=== PATIENT | female | born 1925 | race Caucasian/White ===

== ENCOUNTER 2016-12-27 15:51 | Emergency (ER) | payer MEDICARE, BC ==
--- NOTE | 2016-12-27 16:44 | ER Document Report ---
ED General - General Stated Complaint: RECTAL BLEEDING Time Seen by Provider: 12/27/16 16:10 Mode of Arrival: Medic Information source: Relative, Legal Guardian Cannot obtain history due to: Dementia Notes: Patient presents with her daughter who states that patient had some spotting to her diaper yesterday and had a significant amount of blood in her diaper today. Daughter is uncertain if this is vaginal blood or rectal bleeding. Patient has had occasional wheezing with ambulation over the past few weeks. Daughter denies any fever or cough. Patient has a history of advanced dementia and is nonverbal. TRAVEL OUTSIDE OF THE [place] IN LAST 30 DAYS: No - HPI Onset: Yesterday Onset/Duration: Gradual Quality of pain: No pain Associated symptoms: None. denies: Nonproductive cough, Productive cough, Diarrhea, Vomiting Exacerbated by: Denies Relieved by: Denies Similar symptoms previously: No Recently seen / treated by doctor: No - Related Data Allergies/Adverse Reactions: scopolamine [Scopolamine] Allergy (Intermediate, Verified 01/29/15 11:06) stroke symptoms buprenorphine Allergy (Verified 12/27/16 18:15) prednisone [Prednisone] Allergy (Verified 01/29/15 11:06) Past Medical History - General Information source: Relative, Legal Guardian - Social History Smoking Status: Never Smoker Frequency of alcohol use: None Drug Abuse: None Lives with: Family Family History: Reviewed & Not Pertinent - Past Medical History Cardiac Medical History: Reports: Hx Atrial Fibrillation, Hx Hypertension Pulmonary Medical History: Denies: Hx Tuberculosis Neurological Medical History: Reports: Hx Migraine GI Medical History: Reports: Hx Gastroesophageal Reflux Disease Psychiatric Medical History: Reports: Hx Dementia Past Surgical History: Reports: Hx Appendectomy, Hx Cardiac Surgery - pacemaker , Hx Pacemaker - Immunizations Hx Diphtheria, Pertussis, Tetanus Vaccination: Yes Hx Pneumococcal Vaccination: 05/17/09 Review of Systems - Review of Systems -: Yes ROS unobtainable due to patient's medical condition - demention Constitutional: No symptoms reported. denies: Recent illness EENT: No symptoms reported Cardiovascular: No symptoms reported Respiratory: Wheezing Gastrointestinal: Rectal bleeding - possible Genitourinary: No symptoms reported Female Genitourinary: Vaginal bleeding - possible Musculoskeletal: No symptoms reported Skin: No symptoms reported Hematologic/Lymphatic: No symptoms reported Neurological/Psychological: Dementia Physical Exam - Vital signs Vitals: Resp 24 H 12/27/16 16:01 - General General appearance: Appears well, Alert In distress: None - Respiratory Respiratory status: No respiratory distress Chest status: Nontender Breath sounds: Normal Chest palpation: Normal - Cardiovascular Rhythm: Regular Heart sounds: S1 appreciated, S2 appreciated Murmur: Yes - Abdominal Inspection: Normal Distension: No distension Bowel sounds: Hyperactive Tenderness: Nontender Organomegaly: No organomegaly - Rectal Tenderness: No Stool: See lab result Hemorrhoids: External - Genitourinary External exam: Normal Vaginal bleeding: Moderate - Back Back: Normal - Extremities General upper extremity: Normal inspection, Nontender General lower extremity: Normal inspection, Nontender - Neurological Cognition: Confused Orientation: Disoriented to person [place] Coma Scale Eye Opening: Spontaneous [place] Coma Scale Verbal: Confused [place] Coma Scale Motor: Withdraws to Pain [place] Coma Scale Total: 12 - Skin Skin Temperature: Warm Skin Moisture: Dry Skin Color: Normal Course - Re-evaluation Re-evalutation: 12/27/16 16:[address] Arreguin regarding pt presentation, does not recommend any imaging at this time. Agrees with planned workup. 12/27/16 19:[address] Arreguin regarding the patient chest x-ray report and presentation. Advises ambulating patient monitoring her heart rate in saturation. Dr. Arreguin recommends outpatient follow-up with her primary doctor to further evaluate pleural effusion as well as vaginal bleeding. Pt does not meet admission criteria at this time 12/27/16 19:41 Patient ambulated in the blair with assist 2. Patient did not become hypoxic or tachycardiac after ambulating. Heart rate in the 90s, oxygen saturation 94% . 12/27/16 19:41 Patient without any blood noted to diaper at this time. Bedside report and handout given to Pete HOLCOMB. Family advised of discharge plan of care and importance of follow-up with primary doctor tomorrow as well as pulling unit operator for further evaluation. Discussed worsening signs or symptoms that patient should return immediately for. Family verbalized understanding and agree with plan of care. 12/28/16 07:22 - Vital Signs Vital signs: Temp Pulse Resp BP Pulse Ox 16 149/72 H 96 12/27/16 20:15 12/27/16 20:15 12/27/16 20:15 - Laboratory Result Diagrams: 12/27/16 16:52 12/27/16 17:20 Laboratory results interpreted by me: 12/27/16 12/27/16 12/27/16 16:52 17:20 18:05 RDW 14.2 H Chloride 108 H BUN 26 H Est GFR (Non-Af Amer) 52 L Albumin 3.4 L Urine Blood SMALL H Urine Nitrite POSITIVE H Ur Leukocyte Esterase LARGE H Urine Ascorbic Acid 20 H Labs- Entire Visit 12/27/16 12/27/16 12/27/16 16:52 16:52 16:52 WBC 9.1 RBC 3.94 Hgb 12.5 Hct 36.9 MCV 94 MCH 31.8 MCHC 34.0 RDW 14.2 H Plt Count 237 Seg Neutrophils % 70.2 Lymphocytes % 15.5 Monocytes % 11.8 Eosinophils % 1.6 Basophils % 0.9 Absolute Neutrophils 6.4 Absolute Lymphocytes 1.4 Absolute Monocytes 1.1 Absolute Eosinophils 0.1 Absolute Basophils 0.1 PT 13.9 INR 1.00 APTT 24.3 Sodium Cancelled Potassium Cancelled Chloride Cancelled Carbon Dioxide Cancelled Anion Gap Cancelled BUN Cancelled Creatinine Cancelled Est GFR ( Amer) Cancelled Est GFR (Non-Af Amer) Cancelled Glucose Cancelled Lactic Acid Calcium Cancelled Total Bilirubin Cancelled Direct Bilirubin Cancelled Indirect Bilirubin Cancelled Neonat Total Bilirubin Cancelled AST Cancelled ALT Cancelled Alkaline Phosphatase Cancelled Total Protein Cancelled Albumin Cancelled Urine Color Urine Appearance Urine pH Ur Specific [place] Urine Protein Urine Glucose (UA) Urine Ketones Urine Blood Urine Nitrite Urine Bilirubin Urine Urobilinogen Ur Leukocyte Esterase Urine WBC (Auto) Urine RBC (Auto) Urine Bacteria (Auto) Urine WBC Clumps Squamous Epi Cells Auto Urine Mucus (Auto) Urine Ascorbic Acid Stool Occult Blood Blood Type Antibody Screen 12/27/16 12/27/16 12/27/16 16:54 17:20 18:00 WBC RBC Hgb Hct MCV MCH MCHC RDW Plt Count Seg Neutrophils % Lymphocytes % Monocytes % Eosinophils % Basophils % Absolute Neutrophils Absolute Lymphocytes Absolute Monocytes Absolute Eosinophils Absolute Basophils PT INR APTT Sodium 140.1 Potassium 4.6 Chloride 108 H Carbon Dioxide 25 Anion Gap 7 BUN 26 H Creatinine 1.01 Est GFR ( Amer) > 60 Est GFR (Non-Af Amer) 52 L Glucose 100 Lactic Acid Calcium 9.0 Total Bilirubin 0.5 Direct Bilirubin 0.3 Indirect Bilirubin Not Reportable Neonat Total Bilirubin Not Reportable AST 35 ALT 22 Alkaline Phosphatase 102 Total Protein 6.5 Albumin 3.4 L Urine Color Urine Appearance Urine pH Ur Specific [place] Urine Protein Urine Glucose (UA) Urine Ketones Urine Blood Urine Nitrite Urine Bilirubin Urine Urobilinogen Ur Leukocyte Esterase Urine WBC (Auto) Urine RBC (Auto) Urine Bacteria (Auto) Urine WBC Clumps Squamous Epi Cells Auto Urine Mucus (Auto) Urine Ascorbic Acid Stool Occult Blood NEGATIVE Blood Type O POSITIVE Antibody Screen NEGATIVE 12/27/16 12/27/16 18:00 18:05 WBC RBC Hgb Hct MCV MCH MCHC RDW Plt Count Seg Neutrophils % Lymphocytes % Monocytes % Eosinophils % Basophils % Absolute Neutrophils Absolute Lymphocytes Absolute Monocytes Absolute Eosinophils Absolute Basophils PT INR APTT Sodium Potassium Chloride Carbon Dioxide Anion Gap BUN Creatinine Est GFR ( Amer) Est GFR (Non-Af Amer) Glucose Lactic Acid 1.1 Calcium Total Bilirubin Direct Bilirubin Indirect Bilirubin Neonat Total Bilirubin AST ALT Alkaline Phosphatase Total Protein Albumin Urine Color YELLOW Urine Appearance SLIGHTLY-CLOUDY Urine pH 5.0 Ur Specific [place] 1.015 Urine Protein NEGATIVE Urine Glucose (UA) NEGATIVE Urine Ketones NEGATIVE Urine Blood SMALL H Urine Nitrite POSITIVE H Urine Bilirubin NEGATIVE Urine Urobilinogen NEGATIVE Ur Leukocyte Esterase LARGE H Urine WBC (Auto) 105 Urine RBC (Auto) 1 Urine Bacteria (Auto) 3+ Urine WBC Clumps MOD Squamous Epi Cells Auto <1 Urine Mucus (Auto) RARE Urine Ascorbic Acid 20 H Stool Occult Blood Blood Type Antibody Screen - Diagnostic Test Radiology reviewed: Reports reviewed Discharge - Discharge Clinical Impression: Hx of essential hypertension, Vagina bleeding, Pleural effusion UTI (urinary tract infection) Qualifiers: Urinary tract infection type: site unspecified Hematuria presence: with hematuria Qualified Code(s): N39.0 - Urinary tract infection, site not specified Condition: Stable Disposition: HOME, SELF-CARE Instructions: Augmentin ([facility]), Rocephin ([facility]), Urinary Tract Infection ([facility]), Pleural Effusion ([facility]) Additional Instructions: Return immediately for any new or worsening symptoms: Increased bleeding, fever , change in vital signs, any concerning symptoms Followup with your primary care provider, call tomorrow to make a followup appointment Follow-up with a pulling unit operator for further evaluation of vaginal bleeding. Call their office tomorrow to make an appointment Prescriptions: Amoxicillin/Potassium Clav [Augmentin 500-125 Tablet] 1 each PO BID #14 tablet Referrals: LORI BAILON MD [Primary Care Provider] - [facility] tomorrow [facility] - Follow up tomorrow
[2016-12-27 16:56] LABS: ABSOLUTE BASOPHILS # (AUTO) 0.1 10^3/uL (0.0-0.2); ABSOLUTE EOSINOPHILS # (AUTO) 0.1 10^3/uL (0.0-0.6); ABSOLUTE LYMPHOCYTES (AUTO) 1.4 10^3/uL (0.5-4.7); ABSOLUTE MONOCYTES (AUTO) 1.1 10^3/uL (0.1-1.4); ABSOLUTE NEUT (AUTO) 6.4 10^3/uL (1.7-8.2); BASOPHILS % (AUTO) 0.9 % (0-2); EOSINOPHILS % (AUTO) 1.6 % (0-6); HEMATOCRIT 36.9 % (36.0-47.0); HEMOGLOBIN 12.5 g/dL (12.0-15.5); HGB HCT DIFFERENCE 0.6; LYMPHOCYTES % (AUTO) 15.5 % (13-45); MEAN CORPUSCULAR HEMOGLOBIN 31.8 pg (27.0-33.4); MEAN CORPUSCULAR VOLUME 94 fl (80-97); MONOCYTES % (AUTO) 11.8 % (3-13); RED BLOOD COUNT 3.94 10^6/uL (3.72-5.28); RED CELL DISTRIBUTION WIDTH 14.2 % (11.5-14.0); SEGMENTED NEUTROPHILS % (AUTO) 70.2 % (42-78); WHITE BLOOD COUNT 9.1 10^3/uL (4.0-10.5)
[2016-12-27 17:11] LABS: PARTIAL THROMBOPLASTIN TIME 24.3 SEC (23.5-35.8); PROTHROMBIN TIME 13.9 SEC (11.4-15.4)
[2016-12-27 17:48] LABS: ALANINE AMINOTRANSFERASE 22 U/L (9-52); ALBUMIN 3.4 g/dL (3.5-5.0); ALKALINE PHOSPHATASE 102 U/L (38-126); ANION GAP 7 (5-19); ASPARTATE AMINO TRANSFERASE 35 U/L (14-36); BILIRUBIN,DIRECT 0.3 mg/dL (0.0-0.4); BILIRUBIN,TOTAL 0.5 mg/dL (0.2-1.3); BLOOD UREA NITROGEN 26 mg/dL (7-20); CARBON DIOXIDE 25 mmol/L (22-30); CHLORIDE 108 mmol/L (98-107); CREATININE RESULT 1.01 mg/dL (0.52-1.25); GLUCOSE 100 mg/dL (75-110); POTASSIUM 4.6 mmol/L (3.6-5.0); SODIUM 140.1 mmol/L (137-145); TOTAL PROTEIN 6.5 g/dL (6.3-8.2)
[2016-12-27 18:31] LABS: APPEARANCE,URINE SLIGHTLY-CLOUDY; BILIRUBIN,URINE NEGATIVE (NEGATIVE); GLUCOSE, URINE NEGATIVE (NEGATIVE); KETONES,URINE NEGATIVE (NEGATIVE); LEUKOCYTE ESTERASE,URINE LARGE (NEGATIVE); NITRITE,URINE POSITIVE (NEGATIVE); PROTEIN,URINE NEGATIVE (NEGATIVE); URINE SPECIFIC GRAVITY 1.015; UROBILINOGEN,URINE NEGATIVE mg/dL (<2.0)
[2016-12-27] MEDS ORDERED: CEFTRIAXONE RTU 1 GM/D5W 50 ML IV ONE (18:54)
[2016-12-27 18:55] VITALS: BP 149/72
--- NOTE | 2016-12-27 19:00 | RADIOLOGY REPORT (SQ) ---
EXAM DESCRIPTION: CHEST SINGLE VIEW COMPLETED DATE/TIME: 12/27/2016 6:20 pm REASON FOR STUDY: COUGH COMPARISON: 01/29/2015 EXAM PARAMETERS: NUMBER OF VIEWS: One view. TECHNIQUE: Single frontal radiographic view of the chest acquired. RADIATION DOSE: NA LIMITATIONS: None. FINDINGS: LUNGS AND PLEURA: New right moderate-sized pleural effusion and basilar subsegmental atele ctasis -airspace disease. Left lung appears clear. No pneumothorax identified. MEDIASTINUM AND HILAR STRUCTURES: Stable. HEART AND VASCULAR STRUCTURES: Stable. BONES: No acute findings. HARDWARE: None in the chest. OTHER: No other significant finding. IMPRESSION: New right moderate-sized pleural effusion and basilar subsegmental atelectasis -airspace disease. TECHNICAL DOCUMENTATION: JOB ID: [id number]
== END 2016-12-27 20:48 | disposition home or self-care (01) ==
LOC: ER 15:51
DX: N93.9 Abnormal uterine and vaginal bleeding, unspecified (principal); J90 Pleural effusion, not elsewhere classified; N39.0 Urinary tract infection, site not specified; R31.9 Hematuria, unspecified; I10 Essential (primary) hypertension; R06.2 Wheezing; K64.4 Residual hemorrhoidal skin tags; F03.90 Unspecified dementia, unspecified severity, without behavioral disturbance, psychotic disturbance, mood disturbance, and anxiety; I48.91 Unspecified atrial fibrillation; Z95.0 Presence of cardiac pacemaker; Z88.8 Allergy status to other drugs, medicaments and biological substances
CPT/HCPCS: 99284; 51701; 96374; 86900; 86901; 36415; 86850; 83605; 85025; 85610; 85730; 82272; 80053; 81001; 71010; J0696

== ENCOUNTER 2016-12-28 12:45 | Emergency (ER) | payer MEDICARE, BC ==
--- NOTE | 2016-12-28 12:56 | ER Document Report ---
ED General - General Stated Complaint: VAGINAL BLEEDING Time Seen by Provider: 12/28/16 12:50 Notes: This refill is an 89-year-old female with a history of severe dementia who was seen here yesterday for vaginal bleeding. She had a normal hemoglobin. Was diagnosed with postmenopausal bleeding and asked to follow-up with [facility]. Apparently that appointment is tomorrow. Since then per the facility her bleeding is increased soaking through a pad, her underwear, and pulling on a chair per report. Per EMS her vitals are normal. Patient is quite demented and upset and is unable to give a history. Note: EM caveat invoked secondary to dementia TRAVEL OUTSIDE OF THE [place] IN LAST 30 DAYS: No - Related Data Allergies/Adverse Reactions: scopolamine [Scopolamine] Allergy (Intermediate, Verified 01/29/15 11:06) stroke symptoms buprenorphine Allergy (Verified 12/27/16 18:15) prednisone [Prednisone] Allergy (Verified 01/29/15 11:06) Past Medical History - General Information source: Transfer Record, [facility] Records, Outside Facility Records - Social History Smoking Status: Unknown if Ever Smoked Family History: Reviewed & Not Pertinent - Past Medical History Cardiac Medical History: Reports: Hx Atrial Fibrillation, Hx Hypertension Pulmonary Medical History: Denies: Hx Tuberculosis Neurological Medical History: Reports: Hx Migraine GI Medical History: Reports: Hx Gastroesophageal Reflux Disease Psychiatric Medical History: Reports: Hx Dementia Past Surgical History: Reports: Hx Appendectomy, Hx Cardiac Surgery - pacemaker , Hx Pacemaker - Immunizations Hx Diphtheria, Pertussis, Tetanus Vaccination: Yes Hx Pneumococcal Vaccination: 05/17/09 Review of Systems - Review of Systems Notes: REVIEW OF SYSTEMS Unable to obtain secondary to altered mental status PHYSICAL EXAMINATION General: Tearful Head: Atraumatic, normocephalic ENT: Mouth normal, oropharynx moist, no exudates or tonsillar enlargement Eyes: Conjunctiva normal, pupils equal, lids normal Neck: No JVD, supple, no guarding CVS: Normal rate, regular rhythm, no murmurs Resp: No resp distress, equal and normal breath sounds bilaterally GI: Nondistended, soft, no tenderness to palpation, no rebound or guarding Ext: No deformities, no edema, normal range of motion in upper and lower ext Back: No CVA or midline TTP Skin: No rash, warm Lymphatic: No lymphadeopathy noted Neuro: Awake, alert. Face symmetric. GCS 15. -: Yes ROS unobtainable due to patient's medical condition Physical Exam - Vital signs Vitals: Temp Pulse Resp BP Pulse Ox 97.8 F 72 18 145/83 H 96 12/28/16 12:57 12/28/16 12:57 12/28/16 12:57 12/28/16 12:57 12/28/16 12:57 Course - Re-evaluation Re-evalutation: 12/28/16 12:55 89-year-old female with ongoing postmenopausal vaginal bleeding. No evidence of hemogenic instability or abdominal tenderness. Differential is broad and includes endometrial hyperplasia versus cancer versus fibroid. We will check to make sure she is not more anemic today. Given her stability she will be discharged to follow-up tomorrow. 12/28/16 14:31 She did not tolerate vaginal exam but she did not have active bleeding from the vaginal orifice. Her hemoglobin is actually slightly higher today than it was yesterday indicating to me she is not having a brisk bleed. I explained to her daughter that this likely pooling of slow vaginal blood which is coming out in clots or large amounts despite the lack of this brisk bleeding physiologically. They will follow up with [facility] tomorrow. Bleeding precautions given. - Vital Signs Vital signs: Temp Pulse Resp BP Pulse Ox 97.8 F 72 18 145/83 H 96 12/28/16 12:57 12/28/16 12:57 12/28/16 12:57 12/28/16 12:57 12/28/16 12:57 - Laboratory Result Diagrams: 12/28/16 13:30 Laboratory results interpreted by me: 12/28/16 13:30 RDW 14.6 H Discharge - Discharge Clinical Impression: Vaginal bleeding Condition: Good Disposition: HOME, SELF-CARE Instructions: Vaginal Bleeding ([facility]) Additional Instructions: Please follow-up with gynecology tomorrow as instructed Referrals: LORI BAILON MD [Primary Care Provider] - Follow up as needed
[2016-12-28 13:42] LABS: ABSOLUTE BASOPHILS # (AUTO) 0.1 10^3/uL (0.0-0.2); ABSOLUTE EOSINOPHILS # (AUTO) 0.2 10^3/uL (0.0-0.6); ABSOLUTE LYMPHOCYTES (AUTO) 1.8 10^3/uL (0.5-4.7); ABSOLUTE NEUT (AUTO) 5.4 10^3/uL (1.7-8.2); BASOPHILS % (AUTO) 0.6 % (0-2); EOSINOPHILS % (AUTO) 1.9 % (0-6); HEMATOCRIT 38.1 % (36.0-47.0); HEMOGLOBIN 12.9 g/dL (12.0-15.5); HGB HCT DIFFERENCE 0.6; MEAN CORPUSCULAR HEMOGLOBIN 31.7 pg (27.0-33.4); MEAN CORPUSCULAR HGB CONC 33.8 g/dL (32.0-36.0); MEAN CORPUSCULAR VOLUME 94 fl (80-97); MONOCYTES % (AUTO) 11.4 % (3-13); RED BLOOD COUNT 4.06 10^6/uL (3.72-5.28); RED CELL DISTRIBUTION WIDTH 14.6 % (11.5-14.0); SEGMENTED NEUTROPHILS % (AUTO) 64.1 % (42-78); WHITE BLOOD COUNT 8.4 10^3/uL (4.0-10.5)
[2016-12-28 15:14] VITALS: BP 122/98
== END 2016-12-28 15:13 | disposition home or self-care (01) ==
LOC: ER 12:45
DX: N93.9 Abnormal uterine and vaginal bleeding, unspecified (principal); F03.90 Unspecified dementia, unspecified severity, without behavioral disturbance, psychotic disturbance, mood disturbance, and anxiety
CPT/HCPCS: 36415; 85025; 86850; 86900; 86901; 99284